=== PATIENT | female | born 1935 | race Caucasian/White ===

== ENCOUNTER 2018-02-05 20:29 | Inpatient (IN) | payer OTHER ==
[~2018-02-05] VITALS: Ht 165.1 cm; Wt 69.9 kg
[~2018-02-05 20:29] MED LIST: ACET-1087 PO; ALBU0.0912 IH; BECL0.089 IH; GLU500 PO; OMEP40EC1 PO; [UNRECOGNIZED DRUG - CODE] OP
[2018-02-05 20:47] VITALS: BP 111/55
[2018-02-05] MEDS ORDERED: MORPHINE SULFATE 4 MG/ML SYR IVP ONE ×2 (21:10→22:25)
[2018-02-05] MEDS ORDERED: NACL 0.9% 1,000 ML IV ONE ×2 (21:10→21:50)
[2018-02-05] MEDS ORDERED: ONDANSETRON 4 MG/2 ML VIAL IVP ONE (21:10)
[2018-02-05 21:38] LABS: HEMATOCRIT 31.5 % (36-48); HEMOGLOBIN 10.9 g/dL (12.0-16.0); MEAN CORPUSCULAR HEMOGLOBIN 36 pg (27-31); MEAN CORPUSCULAR HGB CONC 35 g/dL (33-37); MEAN CORPUSCULAR VOLUME 102.7 fL (80-94); PLATELET COUNT (AUTO) 201 K/uL (140-450); RED BLOOD CELL COUNT(AUTO) 3.06 MIL/uL (4.20-5.40); RED CELL DISTRIBUTION WIDTH 15.1 % (11.6-13.7); WHITE BLOOD COUNT (AUTO) 20.2 K/uL (4.8-10.8)
[2018-02-05] MEDS ORDERED: LEVOFLOXACIN 750 MG/D5W PREMIX 150 ML IV ONE (21:45)
[2018-02-05 21:55] LABS: LYMPHOCYTES % (MANUAL) 3 % (20-46); MONOCYTES % (MANUAL) 7 % (5-12)
[2018-02-05 22:01] LABS: ANION GAP 16.5 (8-16); CARBON DIOXIDE 23.2 mmol/L (21-32); CHLORIDE 96 mmol/L (98-107); CREATININE 1.3 mg/dL (0.6-1.3); GLUCOSE 288 mg/dL (74-106); POTASSIUM 4.7 mmol/L (3.5-5.1); SODIUM SERUM 131 mmol/L (136-145); UREA NITROGEN, BLOOD 33 mg/dL (7-18)
[2018-02-05 22:07] LABS: ALBUMIN 2.5 g/dL (3.4-5.0); ASPARTATE AMINOTRANSFERASE 169 U/L (15-37); LIPASE 5678 U/L (73-393)
[2018-02-05] MEDS ORDERED: NACL 0.9% 500 ML IV ONE (22:25)
[2018-02-05] MEDS ORDERED: PROCHLORPERAZINE 10 MG/2 ML VIAL IVP ONE (22:25)
[2018-02-05] MEDS ORDERED: ACETAMINOPHEN 325 MG TAB PO PRN (22:30)
[2018-02-05] MEDS ORDERED: ONDANSETRON 4 MG/2 ML VIAL IVP PRN (22:30)
[2018-02-05] MEDS ORDERED: HYDROcodone/APAP 7.5/325 MG 1 TAB PO PRN (22:30)
[2018-02-05 22:50] VITALS: BP 112/49
[2018-02-05] MEDS: metroNIDAZOLE 500 MG/NS PREMIX 100 ML IV SCH (23:08)
[2018-02-05 23:13] LABS: CHOL/HDL RATIO 13.4 (1-4.5); FREE T4 (FREE THYROXINE) 1.35 ng/dL (0.76-1.46); MAGNESIUM 1.9 mg/dL (1.8-2.4); PHOSPHORUS 2.2 mg/dL (2.5-4.9); THYROID STIMULATING HORMONE 6.87 uIU/mL (0.34-3.74)
[2018-02-05] MEDS ORDERED: INSULIN LISPRO SLIDING SCALE 100 UNITS/ML VIAL SUBQ PRN (23:40)
[2018-02-05] MEDS ORDERED: DEXTROSE 50% 50 ML SYR IVP PRN (23:40)
[2018-02-05] MEDS ORDERED: ALBUTEROL SULFATE/IPRATROPIU 3 ML SOL IH PRN (23:40)
[2018-02-05 23:42] LABS: PROTHROMBIN TIME 13.3 secs (10.8-13.4)
[2018-02-06] VITALS: BP 116/52
[2018-02-06] MEDS: NACL 0.9% 1,000 ML IV SCH ×4 (00:19→21:08)
[2018-02-06] MEDS: ALBUTEROL SULFATE/IPRATROPIU 3 ML SOL IH SCH ×4 (01:30→20:32)
[2018-02-06] MEDS ORDERED: MORPHINE SULFATE 4 MG/ML SYR IVP PRN (02:00)
[2018-02-06 04:00] VITALS: BP 110/54
[2018-02-06] MEDS: metroNIDAZOLE 500 MG/NS PREMIX 100 ML IV SCH ×3 (04:21→21:14)
[2018-02-06] MEDS: BLOOD GLUCOSE MONITORING 1 DEV DEV FS SCH ×4 (06:31→21:14)
[2018-02-06 06:46] LABS: ANION GAP 12.2 (8-16); CHLORIDE 102 mmol/L (98-107); GLUCOSE 242 mg/dL (74-106); POTASSIUM 4.2 mmol/L (3.5-5.1); SODIUM SERUM 133 mmol/L (136-145); UREA NITROGEN, BLOOD 24 mg/dL (7-18)
[2018-02-06 06:51] LABS: HEMATOCRIT 28.3 % (36-48); HEMOGLOBIN 9.6 g/dL (12.0-16.0); MEAN CORPUSCULAR HEMOGLOBIN 35 pg (27-31); MEAN CORPUSCULAR HGB CONC 34 g/dL (33-37); MEAN CORPUSCULAR VOLUME 103.8 fL (80-94); PLATELET COUNT (AUTO) 194 K/uL (140-450); RED BLOOD CELL COUNT(AUTO) 2.73 MIL/uL (4.20-5.40); RED CELL DISTRIBUTION WIDTH 14.7 % (11.6-13.7); WHITE BLOOD COUNT (AUTO) 20.6 K/uL (4.8-10.8)
[2018-02-06 06:54] LABS: MAGNESIUM 1.7 mg/dL (1.8-2.4); PHOSPHORUS 2.9 mg/dL (2.5-4.9)
[2018-02-06 07:51] LABS: LYMPHOCYTES % (MANUAL) 4 % (20-46); MONOCYTES % (MANUAL) 8 % (5-12)
[2018-02-06 08:00] VITALS: BP 104/36
[2018-02-06] MEDS ORDERED: guaiFENesin/CODEINE 100/10MG 5 ML UDC PO PRN (08:15)
[2018-02-06] MEDS: DOCUSATE SODIUM 100 MG GELCAP PO SCH ×2 (08:31→21:14)
[2018-02-06] MEDS: PANTOPRAZOLE 40 MG TABEC PO SCH (08:31)
[2018-02-06] MEDS: LACTOBACILLUS RHAMNOSUS GG 1 EACH CAP PO SCH (08:31)
[2018-02-06] MEDS: metFORMIN 500 MG TAB PO SCH ×2 (08:32→17:55)
[2018-02-06] MEDS ORDERED: MAGNESIUM OXIDE 400 MG TAB PO SCH (11:56)
[2018-02-06 12:00] VITALS: BP 103/43
[2018-02-06 16:00] VITALS: BP 98/39
[2018-02-06] MEDS ORDERED: KETOROLAC 30 MG/ML VIAL IVP PRN (19:10)
[2018-02-06] MEDS ORDERED: KETOROLAC 30 MG/ML VIAL IVP SCH (19:10)
[2018-02-06 19:11] LABS: APPEARANCE,URINE HAZY (CLEAR); BILIRUBIN,URINE 3+ (NEGATIVE); BLOOD, URINE 3+ (NEGATIVE); NITRITE, URINE NEGATIVE (NEGATIVE); PH,URINE 5.5 (5.0-9.0); UGLUCOSE NEGATIVE (NEGATIVE)
[2018-02-06 19:13] LABS: COLOR,URINE AMBER (YELLOW); LEUKOCYTE ESTERASE ,URINE NEGATIVE (NEGATIVE)
[2018-02-06 19:20] LABS: RBC,URINE 20-50 /HPF (0-5)
[2018-02-06 20:00] VITALS: BP 105/34
[2018-02-06] MEDS ORDERED: LEVOFLOXACIN 750 MG/D5W PREMIX 150 ML IV SCH (22:00)
[2018-02-07] VITALS: BP 97/39
[2018-02-07] MEDS: ALBUTEROL SULFATE/IPRATROPIU 3 ML SOL IH SCH ×4 (02:03→18:00)
[2018-02-07 04:00] VITALS: BP 79/37
[2018-02-07] MEDS ORDERED: NACL 0.9% 1,000 ML IV SCH (04:30)
[2018-02-07] MEDS: metroNIDAZOLE 500 MG/NS PREMIX 100 ML IV SCH ×2 (05:07→17:05)
[2018-02-07] MEDS: NACL 0.9% 1,000 ML IV SCH ×2 (05:43→16:00)
[2018-02-07] MEDS: BLOOD GLUCOSE MONITORING 1 DEV DEV FS SCH ×3 (06:34→16:30)
[2018-02-07 07:03] LABS: BASOPHILS % (AUTO) 0.2 % (0.0-2.0); HEMATOCRIT 24.5 % (36-48); HEMOGLOBIN 8.3 g/dL (12.0-16.0); LYMPHOCYTES # (AUTO) 0.6 K/uL (2.5-16.5); LYMPHOCYTES % (AUTO) 3.7 % (20.5-51.1); MEAN CORPUSCULAR HEMOGLOBIN 36 pg (27-31); MEAN CORPUSCULAR HGB CONC 34 g/dL (33-37); MEAN CORPUSCULAR VOLUME 105.5 fL (80-94); MONOCYTES # (AUTO) 1.2 K/uL (0.8-1.0); MONOCYTES % (AUTO) 6.6 % (1.7-9.3); NEUTROPHILS # (AUTO) 15.7 K/uL (1.8-7.7); NEUTROPHILS % (AUTO) 89.5 % (42.2-75.2); PLATELET COUNT (AUTO) 168 K/uL (140-450); RED BLOOD CELL COUNT(AUTO) 2.32 MIL/uL (4.20-5.40); RED CELL DISTRIBUTION WIDTH 15.5 % (11.6-13.7); WHITE BLOOD COUNT (AUTO) 17.5 K/uL (4.8-10.8)
[2018-02-07 07:28] LABS: MAGNESIUM 1.7 mg/dL (1.8-2.4); PHOSPHORUS 2.8 mg/dL (2.5-4.9)
[2018-02-07 07:35] LABS: ALBUMIN 1.5 g/dL (3.4-5.0); BILIRUBIN,DIRECT 7.6 mg/dL (0.0-0.3); TOTAL BILIRUBIN 8.5 mg/dL (0.0-1.0)
[2018-02-07 07:41] LABS: ANION GAP 12.8 (8-16); CHLORIDE 107 mmol/L (98-107); CREATININE 1.3 mg/dL (0.6-1.3); GLUCOSE 111 mg/dL (74-106); POTASSIUM 3.8 mmol/L (3.5-5.1); SODIUM SERUM 136 mmol/L (136-145); UREA NITROGEN, BLOOD 27 mg/dL (7-18)
[2018-02-07 08:00] VITALS: BP 90/37
[2018-02-07] MEDS: metFORMIN 500 MG TAB PO SCH ×2 (08:00→17:00)
[2018-02-07] MEDS ORDERED: KETOROLAC 30 MG/ML VIAL IVP PRN (09:00)
[2018-02-07] MEDS: DOCUSATE SODIUM 100 MG GELCAP PO SCH (09:00)
[2018-02-07] MEDS: LACTOBACILLUS RHAMNOSUS GG 1 EACH CAP PO SCH (09:11)
[2018-02-07] MEDS: PANTOPRAZOLE 40 MG TABEC PO SCH (09:11)
[2018-02-07 12:00] VITALS: BP 108/42
[2018-02-07 12:31] LABS: FOLIC ACID 7.7 ng/mL (>3.0)
[2018-02-07] MEDS ORDERED: MIDAZOLAM 2 MG/2 ML VIAL ONE (13:18)
[2018-02-07] MEDS ORDERED: fentaNYL 0.05 MG/ML VIAL ONE (13:18)
[2018-02-07 16:00] VITALS: BP 121/52
[2018-02-07 19:30] VITALS: BP 129/44
== END 2018-02-07 19:55 | disposition short-term general hospital (02) | DRG 871 ==
LOC: MED 20:29 → MTU 22:27
PROVIDERS: ADMIT Family Medicine Sports Medicine; ATTEND Family Medicine Sports Medicine
DX: A41.9 Sepsis, unspecified organism (principal); K85.90 Acute pancreatitis without necrosis or infection, unspecified; N17.0 Acute kidney failure with tubular necrosis; J96.01 Acute respiratory failure with hypoxia; E43 Unspecified severe protein-calorie malnutrition; J18.9 Pneumonia, unspecified organism; D68.59 Other primary thrombophilia; E11.65 Type 2 diabetes mellitus with hyperglycemia; E11.319 Type 2 diabetes mellitus with unspecified diabetic retinopathy without macular edema; E11.51 Type 2 diabetes mellitus with diabetic peripheral angiopathy without gangrene; E87.1 Hypo-osmolality and hyponatremia; E11.69 Type 2 diabetes mellitus with other specified complication; D53.9 Nutritional anemia, unspecified; E86.0 Dehydration; K80.50 Calculus of bile duct without cholangitis or cholecystitis without obstruction; R65.20 Severe sepsis without septic shock; K21.9 Gastro-esophageal reflux disease without esophagitis; J44.9 Chronic obstructive pulmonary disease, unspecified; E78.5 Hyperlipidemia, unspecified; H54.8 Legal blindness, as defined in USA; E78.2 Mixed hyperlipidemia; E02 Subclinical iodine-deficiency hypothyroidism; E83.42 Hypomagnesemia; I10 Essential (primary) hypertension; Z96.652 Presence of left artificial knee joint; J40 Bronchitis, not specified as acute or chronic; H91.90 Unspecified hearing loss, unspecified ear; Z79.84 Long term (current) use of oral hypoglycemic drugs; Z88.0 Allergy status to penicillin; Z79.899 Other long term (current) drug therapy; Z87.440 Personal history of urinary (tract) infections; Z68.25 Body mass index [BMI] 25.0-25.9, adult
CPT/HCPCS: 36415; 71045; 76705; 80048; 80053; 80076; 81001; 82150; 82607; 82728; 82746; 82948; 83036; 83540; 83605; 83690; 83735; 84100; 84439; 84443; 84484; 85025; 85045; 85610; 85730; 87040; 87070; 87081; 87086; 87205; 87804; 93005; 93925; 93970; 94640; 96361; 96374; 96375; 96376; 99291; J0780; J1815; J1885; J1956; J2250; J2270; J2405; J3010; J3490; J7030; J7620; Q0092

== ENCOUNTER 2018-12-30 19:34 | Inpatient (IN) | payer OTHER, MEDICAID ==
[~2018-12-30] VITALS: Ht 154.9 cm; Wt 72.6 kg
--- NOTE | 2018-12-30 20:20 | NUR ---
[facility], FAMILY WITH HER
[2018-12-30 20:22] VITALS: BP 129/56
--- NOTE | 2018-12-30 20:22 | NUR ---
PT IS UNABLE TO URINATE , GAVE U/A SPEC. CUP.
[2018-12-30 20:28] LABS: BASOPHILS % (AUTO) 0.4 % (0.0-2.0); EOSINOPHILS # (AUTO) 0.5 K/uL (0-0.4); HEMATOCRIT 36.6 % (36-48); HEMOGLOBIN 12.1 g/dL (12.0-16.0); LYMPHOCYTES # (AUTO) 1.1 K/uL (2.5-16.5); MEAN CORPUSCULAR HEMOGLOBIN 34 pg (27-31); MEAN CORPUSCULAR HGB CONC 33 g/dL (33-37); MEAN CORPUSCULAR VOLUME 102.6 fL (80-94); MONOCYTES # (AUTO) 0.8 K/uL (0.8-1.0); MONOCYTES % (AUTO) 12.4 % (1.7-9.3); NEUTROPHILS # (AUTO) 3.8 K/uL (1.8-7.7); NEUTROPHILS % (AUTO) 61.2 % (42.2-75.2); PLATELET COUNT (AUTO) 178 K/uL (140-450); RED BLOOD CELL COUNT(AUTO) 3.57 MIL/uL (4.20-5.40); RED CELL DISTRIBUTION WIDTH 13.6 % (11.6-13.7); WHITE BLOOD COUNT (AUTO) 6.2 K/uL (4.8-10.8)
[2018-12-30 20:42] LABS: CARBON DIOXIDE 26.2 mmol/L (21-32); CHLORIDE 105 mmol/L (98-107); CREATININE 1.5 mg/dL (0.6-1.3); GLUCOSE 224 mg/dL (74-106); POTASSIUM 4.2 mmol/L (3.5-5.1); SODIUM SERUM 141 mmol/L (136-145); UREA NITROGEN, BLOOD 37 mg/dL (7-18)
[2018-12-30 20:47] LABS: PROTHROMBIN TIME 10.8 secs (10.8-13.4)
[2018-12-30 20:56] LABS: ALBUMIN 3.5 g/dL (3.4-5.0); ASPARTATE AMINOTRANSFERASE 27 U/L (15-37); TOTAL BILIRUBIN 0.3 mg/dL (0.0-1.0)
--- NOTE | 2018-12-30 21:05 | NUR ---
PT TO ED WITH C/O COUGH AND REPORTED FEVER X 1 MONTH. PT REPORTS BEING SEEN BY PRIMARY MD AND GIVEN ABX WITH NO RELIEF OF SMYMPTOMS. PT DENIES CP/SOB. LUNG SOUNDS CLEAR TO ASCULTATION. NO S/S OF DISTRESS NOTED. PT PLACED INTO BED, PENDING MD JOHNSON.
[2018-12-30 22:18] LABS: APPEARANCE,URINE CLOUDY (CLEAR); BILIRUBIN,URINE NEGATIVE (NEGATIVE); BLOOD, URINE TRACE-L (NEGATIVE); COLOR,URINE YELLOW (YELLOW); LEUKOCYTE ESTERASE ,URINE 2+ (NEGATIVE); NITRITE, URINE NEGATIVE (NEGATIVE); PH,URINE 5.5 (5.0-9.0); UGLUCOSE NEGATIVE (NEGATIVE)
[2018-12-30 22:56] LABS: WBC,URINE TOO MANY TO COUNT /HPF (0-5)
[2018-12-30 22:57] LABS: RBC,URINE 0-5 /HPF (0-5)
[2018-12-30] MEDS ORDERED: LEVOFLOXACIN 500 MG/D5W PREMIX 100 ML IV ONE (23:10)
--- NOTE | 2018-12-31 00:30 | NUR ---
PT RESTING WITH VISITORS AT BEDSIDE. NO NEW COMPLAINTS. WILL CONTINUE TO MONITOR.
[2018-12-31] MEDS ORDERED: LORazepam 2 MG/ML VIAL IVP PRN (01:35)
[2018-12-31] MEDS ORDERED: ACETAMINOPHEN 500 MG PO SCH (01:35)
[2018-12-31] MEDS ORDERED: DEXTROSE 50% 50 ML SYR IVP PRN (01:35)
[2018-12-31] MEDS ORDERED: HYDROcodone/APAP 5/325 MG 1 TAB TAB PO PRN (01:35)
[2018-12-31] MEDS ORDERED: NON-FORMULARY ITEM (Omeprazole* (Prilosec*) 40 MG) PO SCH (01:35)
[2018-12-31] MEDS ORDERED: ONDANSETRON 4 MG/2 ML VIAL IVP PRN (01:35)
[2018-12-31] MEDS ORDERED: ACETAMINOPHEN 325 MG TAB PO PRN (01:35)
--- NOTE | 2018-12-31 01:47 | NUR ---
PT SLEEPING WITH VSS. WILL CONTINUE TO MONITOR.
--- NOTE | 2018-12-31 02:44 | NUR ---
Patient will be admitted to care of DR ESPINOZA. Admited to M/S. Will go to room 123-A. Belongings list completed. Report to LON HEWITT.
--- NOTE | 2018-12-31 02:50 | NUR ---
RECEIVED REPORT FROM PANTRY WORKER FOR CONTINUITY OF CARE. PT IS A/OX4, ON ROOM AIR AND SPEAKS TURKMEN ONLY. PT ABLE TO MAKE NEEDS KNOWN, AND ABLE TO FOLLOW COMMANDS. PT AMBULATES WITH ASSISTANCE. PT SKIN IS INTACT. PT HAS A 22G IV TO LEFT HAND, ASYMPTOMATIC AND INTACT. VITAL SIGNS WITHIN NORMAL LIMITS. PT STABLE, DENIES PAIN, NO SIGNS OF DISTRESS NOTED AT THIS TIME. PT POSITIONED FOR COMFORT. BED IN LOWEST POSITION, BED ALARM ON. WILL CONTINUE TO MONITOR.
[2018-12-31 03:00] VITALS: BP 132/45
[2018-12-31] MEDS: NACL 0.9% 1,000 ML IV SCH ×3 (03:30→21:35)
[2018-12-31] MEDS: BLOOD GLUCOSE MONITORING 1 DEV DEV FS SCH ×4 (06:03→21:36)
--- NOTE | 2018-12-31 06:03 | NUR ---
PT BLOOD SUGAR IS 160, PT REFUSES HUMALOG INSULIN COVERAGE.
--- NOTE | 2018-12-31 07:29 | NUR ---
ENDORSED PT TO DAY SHIFT RN RASHEEDA AT BEDSIDE, FOR CONTINUITY OF CARE. PT IN STABLE CONDITION.
--- NOTE | 2018-12-31 07:30 | NUR ---
RECEIVED BEDSIDE REPORT FROM STOCK MANAGER NURSE. PATIENT IS AWAKE, ALERT AND ORIENTEDX4. CONGOLESE SPEAKER. NO SIGNS OF DISTRESS ON RA. SKIN INTACT. FALL RISK PROTOCOL IN PLACE. PATIENT IS LEGALLY BLIND. WALKER AT BEDSIDE. L HAND 22G INFUSING NS AT 100. CLEAN, DRY AND INTACT. BED IN LOW POSITION, CALL LIGHT WITHIN REACH. PATIENT IS CONTINENT. WILL CONTINUE TO MONITOR
[2018-12-31 08:00] VITALS: BP 128/48
--- NOTE | 2018-12-31 08:03 | NUR ---
PATIENT HAS BEEN SCREENED AND CATEGORIZED MODERATE NUTRITION RISK. PATIENT WILL BE SEEN WITHIN 3-5 DAYS OF ADMISSION. 01/02/[address]
[2018-12-31] MEDS ORDERED: ENOXAPARIN 40 MG/0.4 ML SYR SUBQ SCH (09:00)
[2018-12-31] MEDS ORDERED: CROMOLYN SODIUM OP SCH (09:00)
[2018-12-31] MEDS ORDERED: [UNRECOGNIZED DRUG - OTHER] IH SCH (09:00)
[2018-12-31] MEDS: ENOXAPARIN 30 MG/0.3 ML SYR SUBQ SCH (09:20)
--- NOTE | 2018-12-31 09:20 | NUR ---
ADMINISTERED MED. PATIENT TOLERATED WELL. WILL CONTINUE TO MONITOR
--- NOTE | 2018-12-31 11:00 | NUR ---
PATIENT IN NO DISTRESS, WILL CONTINUE TO MONITOR
[2018-12-31] MEDS: INSULIN LISPRO SLIDING SCALE 100 UNITS/ML VIAL SUBQ PRN ×2 (13:09→21:43)
--- NOTE | 2018-12-31 13:09 | NUR ---
ADMINISTERED PRN INSULIN. PATIENT TOLERATED WELL. WILL CONTINUE TO MONITOR
--- NOTE | 2018-12-31 13:35 | NUR ---
PER REQUEST OF BERTIN DIA I CALLED [employer] TO FIND OUT IF PATIENT HAD HOME HEALTH. SPOKE WITH AYSHA AND SHE SAID THE PATIENT HAD [facility] BACK IN May, [employer] [phone]. FOR AYSHA.
--- NOTE | 2018-12-31 14:30 | NUR ---
WAS CALLED THE THE ROOM BY THE SON, NIKKI ARNOLD. HE WANTED TO LET US KNOW THAT HE WAS APPLYING FOR IHSS FOR THIS PATIENT.
--- NOTE | 2018-12-31 15:16 | NUR ---
AMBULATED PATIENT TO BATHROOM AND BACK TO BED. PATIENT RESTING IN BED. SON AT BEDSIDE. PT. HAS DRY COUGH, LUNGS CLEAR. NO SIGNS OF DISTRESS.
[2018-12-31 16:00] VITALS: BP 118/44
--- NOTE | 2018-12-31 17:00 | NUR ---
PATIENT IN NO DISTRESS. WILL CONTINUE TO MONITOR
--- NOTE | 2018-12-31 18:23 | NUR ---
PATIENT REQUESTING PAIN MEDS. SHES COUGHING AND ITS CAUSING UPPER CHEST PAIN. WILL CONTINUE TO MONITOR
--- NOTE | 2018-12-31 19:23 | NUR ---
GAVE BEDSIDE REPORT TO ORACLE SECURITY CONSULTANT NURSE. PATIENT ENDORSED IN STABLE CONDITION
--- NOTE | 2018-12-31 19:25 | NUR ---
RECEIVED PT FROM HELEN RN PT MAORI SPEAKER AAOX4 LEGALLY BLIND IV ON LEFT ARM INFUSING WELL PT ALSO S ASSISTED TO THE RESTROOM INITIAL ASSESSMENTDONE
[2018-12-31] MEDS ORDERED: guaiFENesin DM 200/20 MG-10 ML 10 ML UDC PO PRN (19:45)
[2018-12-31 20:00] VITALS: BP 115/42
[2018-12-31] MEDS ORDERED: LEVOFLOXACIN 250 MG/D5 PREMIX 50 ML IV SCH (21:00)
--- NOTE | 2018-12-31 21:30 | NUR ---
BLOOD SUGAR TEST 177 COVERAGE WITH 2 UNITS SUBQ HUMALOG PROTOCOL HS SNACK IS GIVEN
[2018-12-31] MEDS ORDERED: LEVOFLOXACIN 500 MG/D5W PREMIX 100 ML IV SCH (23:30)
--- NOTE | 2018-12-31 23:59 | NUR ---
PT REPOSITIONED AND GETTING SLEEP NOT DISTRESS NOTED UNABLE TO GIVE SPUTUM YET
--- NOTE | 2019-01-01 03:00 | NUR ---
SPONGE BATH GIVEN AND SENT TO LAB, ANDPT HAS BEEN ASSISTING TO USED THE BSC
[2019-01-01] MEDS: BLOOD GLUCOSE MONITORING 1 DEV DEV FS SCH ×3 (06:15→16:59)
--- NOTE | 2019-01-01 06:21 | NUR ---
SPUTUM WAS COLECTED AND SENT TO LAB
--- NOTE | 2019-01-01 06:22 | NUR ---
BLOOD SUGAR TEST 118 PT REMAIN RESTING NOT DISTRESS NOTED
--- NOTE | 2019-01-01 07:20 | NUR ---
RECEIVED BEDSIDE REPORT FROM BUNDLE SORTER NURSE. PATIENT IS AWAKE, ALERT AND ORIENTEDX4. NO SIGNS OF DISTRESS ON RA. MACEDONIAN SPEAKER. SKIN IS INTACT. IV ON L HAND 22G INFUSING NS AT 100. CLEAN, DRY AND INTACT. PATIENT AMBULATES BUT IS BLIND. WALKER AT BEDSIDE. AMBULATE W ASSIST. FALL RISK PROTOCOL IN PLACE. PATIENT IS CONTINENT. BEDSIDE COMMODE AT BEDSIDE. BED IN LOW POSITION, CALL LIGHT WITHIN REACH. WILL CONTINUE TO MONITOR THE PATIENT
[2019-01-01 07:25] LABS: BASOPHILS % (AUTO) 0.6 % (0.0-2.0); EOSINOPHILS # (AUTO) 0.4 K/uL (0-0.4); HEMATOCRIT 32.6 % (36-48); HEMOGLOBIN 10.9 g/dL (12.0-16.0); LYMPHOCYTES # (AUTO) 1.9 K/uL (2.5-16.5); LYMPHOCYTES % (AUTO) 37.4 % (20.5-51.1); MEAN CORPUSCULAR HEMOGLOBIN 34 pg (27-31); MEAN CORPUSCULAR HGB CONC 34 g/dL (33-37); MEAN CORPUSCULAR VOLUME 102.6 fL (80-94); MONOCYTES % (AUTO) 19.8 % (1.7-9.3); NEUTROPHILS # (AUTO) 1.7 K/uL (1.8-7.7); NEUTROPHILS % (AUTO) 34.2 % (42.2-75.2); PLATELET COUNT (AUTO) 163 K/uL (140-450); RED BLOOD CELL COUNT(AUTO) 3.18 MIL/uL (4.20-5.40); RED CELL DISTRIBUTION WIDTH 13.5 % (11.6-13.7); WHITE BLOOD COUNT (AUTO) 5.1 K/uL (4.8-10.8)
[2019-01-01 07:33] LABS: CHLORIDE 107 mmol/L (98-107); CREATININE 0.8 mg/dL (0.6-1.3); GLUCOSE 124 mg/dL (74-106); POTASSIUM 3.9 mmol/L (3.5-5.1); SODIUM SERUM 139 mmol/L (136-145); UREA NITROGEN, BLOOD 20 mg/dL (7-18)
[2019-01-01] MEDS: NACL 0.9% 1,000 ML IV SCH (07:46)
[2019-01-01 07:50] LABS: ANION GAP 10.1 (8-16); CARBON DIOXIDE 25.8 mmol/L (21-32)
[2019-01-01 08:00] VITALS: BP 100/50
[2019-01-01] MEDS ORDERED: ASPIRIN 81 MG TAB.CHEW PO SCH (09:00)
--- NOTE | 2019-01-01 09:30 | NUR ---
ADMINISTERED MEDICATION TO PATIENT. TOLERATED WELL. RESTING IN BEST NO SIGNS OF DISTRESS ON RA. CALL LIGHT WITHIN REACH, BED IN LOW POSITION.
[2019-01-01] MEDS: ENOXAPARIN 30 MG/0.3 ML SYR SUBQ SCH (09:34)
--- NOTE | 2019-01-01 11:00 | NUR ---
PATIENT IN NO SIGNS OF DISTRESS. WILL CONTINUE TO MONITOR THE PATIENT
--- NOTE | 2019-01-01 13:30 | NUR ---
PATIENT IS SLEEPING. NO SIGNS OF DISTRESS. WILL CONTINUE TO MONITOR THE PATIENT
[2019-01-01] MEDS ORDERED: LEVO750T2 PO (14:16)
[2019-01-01] MEDS ORDERED: GUAI-646 PO (14:17)
--- NOTE | 2019-01-01 15:28 | NUR ---
PATIENT LAYING IN BED. NO SIGNS OF DISTRESS. WILL CONTINUE TO MONITOR THE PATIENT.
[2019-01-01] MEDS ORDERED: ALBU0.63 IH (15:39)
[2019-01-01] MEDS ORDERED: ALBUTEROL 0.083% 2.5 MG/3 ML NEBU INH PRN (15:45)
[2019-01-01 16:00] VITALS: BP 121/38
--- NOTE | 2019-01-01 16:07 | NUR ---
PATIENT CURRENTLY W RT GETTING BREATHING TX
--- NOTE | 2019-01-01 17:27 | NUR ---
EDUCATED PATIENT AND DAUGHTER ON DISEASE PROCESS, ABN S/SX, WHEN TO GO TO THE ER, EDUCATED ON F/U W PCP IN 1-2 WEEKS, EDUCATED ON MEDS AND GAVE PRESCRIPTION. PATIENT AND DAUGHTER VERBALIZED UNDERSTANDING. DAUGHTER SIGNED PAPERWORK, PATIENT IS BLIND. ID BANDS REMOVED. REMOVED IV. TIP INTACT.
--- NOTE | 2019-01-01 17:35 | NUR ---
PNA AND FLU VACCINE UP TO DATE PER DAUGHTER. PATIENT LEFT IN STABLE CONDITION IN WALKER
[2019-01-02] MEDS ORDERED: PANTOPRAZOLE 40 MG TABEC PO SCH (06:30)
== END 2019-01-01 17:35 | disposition home or self-care (01) | DRG 683 ==
LOC: MED 19:34 → MTU 12-31 01:38
PROVIDERS: ADMIT Hospitalist; ATTEND Hospitalist
DX: N17.9 Acute kidney failure, unspecified (principal); N39.0 Urinary tract infection, site not specified; J45.901 Unspecified asthma with (acute) exacerbation; E11.65 Type 2 diabetes mellitus with hyperglycemia; Z88.0 Allergy status to penicillin; Z79.84 Long term (current) use of oral hypoglycemic drugs; Z79.899 Other long term (current) drug therapy
CPT/HCPCS: 36415; 71045; 80048; 80053; 81001; 82948; 83605; 83880; 84484; 85025; 85610; 85730; 87040; 87070; 87081; 87086; 87186; 87205; 87804; 89220; 93005; 94640; 96365; 99285; J1650; J1815; J1956; J7030; J7613

== ENCOUNTER 2019-06-21 00:58 | Emergency (ER) | payer OTHER, MEDICAID ==
[~2019-06-21] VITALS: Ht 149.9 cm; Wt 77.1 kg
[~2019-06-21 00:58] MED LIST changes: -ACET-1087 PO; -BECL0.089 IH; +GUAI-646 PO; +LEVO750T2 PO; -OMEP40EC1 PO; -[UNRECOGNIZED DRUG - CODE] OP
[2019-06-21 01:05] VITALS: BP 120/63
--- NOTE | 2019-06-21 01:49 | NUR ---
83/F BIB FAMILY, C/O DIARRHEA (X10 EPISODSES TONIGHT) AND MIDABD PAIN RADIATING DIFFUSELY, X5 DAYS. DENIES FEVER, N/V. PT AWAKE AND ALERT, BL BLINDNESS NOTED, SKIN LOOSE NORMAL COLOR WARM AND DRY, RR EVEN AND UNLABORED. LUNG SOUNDS CLEAR BL. HR EVEN AND REGULAR, NSR ON MONITOR. BS ACTIVE X4, ABD SOFT FLAT TENDER DIFFUSELY. HX DM, BLINDNESS, ASTHMA RX METFORMIN, ALBUTEROL INH
[2019-06-21] MEDS ORDERED: LOPERAMIDE 2 MG CAP PO ONE (01:55)
[2019-06-21] MEDS ORDERED: NACL 0.9% 1,000 ML IV ONE (01:55)
[2019-06-21 02:19] LABS: BASOPHILS % (AUTO) 0.3 % (0.0-2.0); EOSINOPHILS # (AUTO) 0.3 K/uL (0-0.4); EOSINOPHILS % (AUTO) 4.7 % (0.0-4.0); HEMATOCRIT 34.8 % (36-48); HEMOGLOBIN 11.7 g/dL (12.0-16.0); LYMPHOCYTES % (AUTO) 36.1 % (20.5-51.1); MEAN CORPUSCULAR HEMOGLOBIN 34 pg (27-31); MEAN CORPUSCULAR HGB CONC 34 g/dL (33-37); MEAN CORPUSCULAR VOLUME 101.5 fL (80-94); MONOCYTES # (AUTO) 0.6 K/uL (0.8-1.0); MONOCYTES % (AUTO) 10.5 % (1.7-9.3); NEUTROPHILS # (AUTO) 2.7 K/uL (1.8-7.7); NEUTROPHILS % (AUTO) 48.4 % (42.2-75.2); PLATELET COUNT (AUTO) 156 K/uL (140-450); RED BLOOD CELL COUNT(AUTO) 3.42 MIL/uL (4.20-5.40); RED CELL DISTRIBUTION WIDTH 13.8 % (11.6-13.7); WHITE BLOOD COUNT (AUTO) 5.6 K/uL (4.8-10.8)
[2019-06-21 02:37] LABS: ALBUMIN 3.3 g/dL (3.4-5.0); ANION GAP 9.4 (8-16); ASPARTATE AMINOTRANSFERASE 20 U/L (15-37); CHLORIDE 105 mmol/L (98-107); CREATININE 1.1 mg/dL (0.6-1.3); GLUCOSE 209 mg/dL (74-106); POTASSIUM 4.4 mmol/L (3.5-5.1); SODIUM SERUM 138 mmol/L (136-145); TOTAL BILIRUBIN 0.4 mg/dL (0.0-1.0); UREA NITROGEN, BLOOD 25 mg/dL (7-18)
--- NOTE | 2019-06-21 02:49 | NUR ---
BACK FROM CT SCAN.
--- NOTE | 2019-06-21 02:50 | NUR ---
CT SCANNER BROKEN. CT NOT DONE.
--- NOTE | 2019-06-21 03:51 | NUR ---
DISCHARGED STABLE. PRESCRIPTION,COPY OF LABS,VERBAL AND WRITTEN AFTERCARE INSTRUCTIONS GIVEN TO PATIENT AND FAMILY. VERBALIZED UNDERSTANDING.
[2019-06-21 04:30] VITALS: BP 126/44
== END 2019-06-21 03:51 | disposition home or self-care (01) ==
LOC: MED 00:58
DX: R19.7 Diarrhea, unspecified (principal); J44.9 Chronic obstructive pulmonary disease, unspecified; E11.9 Type 2 diabetes mellitus without complications; Z88.0 Allergy status to penicillin; Z79.899 Other long term (current) drug therapy; Z79.2 Long term (current) use of antibiotics; Z79.51 Long term (current) use of inhaled steroids
CPT/HCPCS: 36415; 80053; 85025; 96360; 99283; J7030

== ENCOUNTER 2019-07-19 15:40 | Emergency (ER) | payer OTHER, MEDICAID ==
[~2019-07-19] VITALS: Ht 149.9 cm; Wt 75.7 kg
[2019-07-19 16:15] VITALS: BP 117/55
[2019-07-19] MEDS ORDERED: HYDROcodone/APAP 5/325 MG 1 TAB TAB PO ONE (17:05)
[2019-07-19] MEDS ORDERED: ONDANSETRON 4 MG ODT PO ONE (17:05)
[2019-07-19 17:53] LABS: BASOPHILS % (AUTO) 0.2 % (0.0-2.0); HEMATOCRIT 34.8 % (36-48); HEMOGLOBIN 11.4 g/dL (12.0-16.0); LYMPHOCYTES # (AUTO) 0.7 K/uL (2.5-16.5); LYMPHOCYTES % (AUTO) 4.7 % (20.5-51.1); MEAN CORPUSCULAR HEMOGLOBIN 34 pg (27-31); MEAN CORPUSCULAR HGB CONC 33 g/dL (33-37); MEAN CORPUSCULAR VOLUME 103.5 fL (80-94); MONOCYTES # (AUTO) 1.2 K/uL (0.8-1.0); NEUTROPHILS % (AUTO) 87.1 % (42.2-75.2); PLATELET COUNT (AUTO) 147 K/uL (140-450); RED BLOOD CELL COUNT(AUTO) 3.36 MIL/uL (4.20-5.40); RED CELL DISTRIBUTION WIDTH 13.5 % (11.6-13.7)
[2019-07-19 17:55] LABS: APPEARANCE,URINE SL CLOUDY (CLEAR); BILIRUBIN,URINE 1+ (NEGATIVE); BLOOD, URINE 3+ (NEGATIVE); COLOR,URINE YELLOW (YELLOW); LEUKOCYTE ESTERASE ,URINE 2+ (NEGATIVE); NITRITE, URINE NEGATIVE (NEGATIVE); UGLUCOSE NEGATIVE (NEGATIVE)
[2019-07-19 18:10] LABS: ANION GAP 16.4 (8-16); CARBON DIOXIDE 23.7 mmol/L (21-32); CHLORIDE 95 mmol/L (98-107); CREATININE 1.5 mg/dL (0.6-1.3); GLUCOSE 207 mg/dL (74-106); POTASSIUM 4.1 mmol/L (3.5-5.1); SODIUM SERUM 131 mmol/L (136-145); UREA NITROGEN, BLOOD 31 mg/dL (7-18)
[2019-07-19 18:16] LABS: ASPARTATE AMINOTRANSFERASE 34 U/L (15-37); LIPASE 57 U/L (73-393); TOTAL BILIRUBIN 0.6 mg/dL (0.0-1.0)
[2019-07-19] MEDS ORDERED: SULFAMETH/TRIMETH DS 800/160MG 1 TAB PO ONE (18:35)
[2019-07-19 19:04] VITALS: BP 126/71
== END 2019-07-19 19:06 | disposition home or self-care (01) ==
LOC: MED 15:40
DX: N39.0 Urinary tract infection, site not specified (principal); R11.0 Nausea; J44.9 Chronic obstructive pulmonary disease, unspecified; E11.9 Type 2 diabetes mellitus without complications; K21.9 Gastro-esophageal reflux disease without esophagitis; H54.8 Legal blindness, as defined in USA; Z90.49 Acquired absence of other specified parts of digestive tract; Z98.890 Other specified postprocedural states; Z79.84 Long term (current) use of oral hypoglycemic drugs; Z79.899 Other long term (current) drug therapy; Z88.0 Allergy status to penicillin
CPT/HCPCS: 36415; 70450; 80053; 81001; 83690; 85025; 87086; 87186; 99284; Q0162

== ENCOUNTER 2020-06-29 09:36 | Emergency (ER) | payer OTHER, MEDICAID ==
[~2020-06-29] VITALS: Ht 154.9 cm; Wt 72.6 kg
[2020-06-29 09:42] VITALS: BP 152/77
--- NOTE | 2020-06-29 09:50 | NUR ---
PT AMBULATED TO ER BED 03
--- NOTE | 2020-06-29 10:00 | NUR ---
CHAPERONED DR. BUCK FOR BEDSIDE RECTAL EXAM. PT TOLERATED PROCEDURE WELL
--- NOTE | 2020-06-29 10:00 | NUR ---
dr newman at bedside evaluating pt.
--- NOTE | 2020-06-29 10:02 | NUR ---
C/O COUGH X 2 MONTHS, BLOODY STOOL, INTERMITENT ABDOMINAL PAIN X 2 WEEKS. BLOOD SUGAR 407 AT THIS TIME.PT AOX4 , AFIBRILE , AMBULATORY WITH STEADY GAIT,UNABLE TO SEE, PINK PALPEBRAL CONJUNCTIVA , ANICTERIC SCLERA , SCE , ROUND SOFT ABDOMEN. MED HX: DM, ASTHMA,COPD,GERD
[2020-06-29 10:39] LABS: BASOPHILS % (AUTO) 0.5 % (0.0-2.0); EOSINOPHILS # (AUTO) 0.3 K/uL (0-0.4); EOSINOPHILS % (AUTO) 6.1 % (0.0-4.0); HEMATOCRIT 37.5 % (36-48); HEMOGLOBIN 12.3 g/dL (12.0-16.0); LYMPHOCYTES # (AUTO) 1.9 K/uL (2.5-16.5); LYMPHOCYTES % (AUTO) 33.7 % (20.5-51.1); MEAN CORPUSCULAR HEMOGLOBIN 34 pg (27-31); MEAN CORPUSCULAR HGB CONC 33 g/dL (33-37); MEAN CORPUSCULAR VOLUME 102.4 fL (80-94); MONOCYTES # (AUTO) 0.6 K/uL (0.8-1.0); MONOCYTES % (AUTO) 11.1 % (1.7-9.3); NEUTROPHILS # (AUTO) 2.7 K/uL (1.8-7.7); NEUTROPHILS % (AUTO) 48.6 % (42.2-75.2); PLATELET COUNT (AUTO) 179 K/uL (140-450); RED BLOOD CELL COUNT(AUTO) 3.66 MIL/uL (4.20-5.40); RED CELL DISTRIBUTION WIDTH 13.6 % (11.6-13.7); WHITE BLOOD COUNT (AUTO) 5.5 K/uL (4.8-10.8)
[2020-06-29 10:50] LABS: APPEARANCE,URINE HAZY (CLEAR); BILIRUBIN,URINE NEGATIVE (NEGATIVE); BLOOD, URINE 1+ (NEGATIVE); COLOR,URINE YELLOW (YELLOW); LEUKOCYTE ESTERASE ,URINE TRACE (NEGATIVE); NITRITE, URINE NEGATIVE (NEGATIVE); UGLUCOSE 3+ (NEGATIVE)
[2020-06-29 10:58] LABS: ALBUMIN 3.1 g/dL (3.4-5.0); ANION GAP 11.3 (8-16); ASPARTATE AMINOTRANSFERASE 17 U/L (15-37); CARBON DIOXIDE 26.3 mmol/L (21-32); CHLORIDE 103 mmol/L (98-107); CREATININE 1.1 mg/dL (0.6-1.3); LIPASE 98 U/L (73-393); POTASSIUM 4.6 mmol/L (3.5-5.1); SODIUM SERUM 136 mmol/L (136-145); TOTAL BILIRUBIN 0.3 mg/dL (0.0-1.0); UREA NITROGEN, BLOOD 23 mg/dL (7-18)
--- NOTE | 2020-06-29 11:00 | NUR ---
SPOKE TO NIKKI PT SON WAITING AT THE PARKING LOT REGARDING PT CONDITION.
[2020-06-29 11:02] LABS: RBC,URINE 0-5 /HPF (0-5); WBC,URINE 20-60 /HPF (0-5)
[2020-06-29 11:04] LABS: GLUCOSE 469 mg/dL (74-106)
--- NOTE | 2020-06-29 11:15 | NUR ---
DR BUCK AT BEDSIDE REEVALUATING PT.
[2020-06-29] MEDS ORDERED: NACL 0.9% 1,000 ML IV ONE (11:20)
[2020-06-29] MEDS ORDERED: INSULIN REGULAR, HUMAN 100 UNIT/ML VIAL SUBQ ONE (11:20)
--- NOTE | 2020-06-29 11:55 | NUR ---
pt comfortable in bed side rails up x1 and lock, with son at bedside.
--- NOTE | 2020-06-29 13:20 | NUR ---
Patient discharged with v/s stable. Written and verbal after care instructions given and explained regarding hyperglycemia and uti. Patient alert, oriented and verbalized understanding of instructions. Ambulatory with steady gait. All questions addressed prior to discharge. ID band removed. Patient advised to follow up with PMD. Rx of metformin and macrobid given. Patient educated on indication of medication including possible reaction and side effects. Opportunity to ask questions provided and answered.
[2020-06-29 13:21] VITALS: BP 152/77
== END 2020-06-29 13:20 | disposition home or self-care (01) ==
LOC: MED 09:36
DX: E11.65 Type 2 diabetes mellitus with hyperglycemia (principal); N39.0 Urinary tract infection, site not specified; R03.0 Elevated blood-pressure reading, without diagnosis of hypertension; J44.9 Chronic obstructive pulmonary disease, unspecified; J45.909 Unspecified asthma, uncomplicated; K21.9 Gastro-esophageal reflux disease without esophagitis; Z88.0 Allergy status to penicillin; Z90.49 Acquired absence of other specified parts of digestive tract; Z79.899 Other long term (current) drug therapy; Z87.81 Personal history of (healed) traumatic fracture
CPT/HCPCS: 36415; 80053; 81001; 83690; 85025; 87086; 96361; 96372; 99283; J1815; J7030; 87186

== ENCOUNTER 2021-04-13 14:36 | Emergency (ER) | payer OTHER, MEDICAID, SELFPAY ==
[~2021-04-13] VITALS: Ht 154.9 cm; Wt 87.1 kg
[~2021-04-13 14:36] MED LIST changes: -ALBU0.0912 IH; +APIX2.5 PO; +DEC4 PO; +FAMO-90 PO; -GUAI-646 PO; +INSU-1331 SC; +LEVO500T98 PO; -LEVO750T2 PO
[2021-04-13 14:39] VITALS: BP 122/57
[2021-04-13] MEDS ORDERED: KETOROLAC 60 MG/2 ML VIAL IM ONE (15:15)
[2021-04-13] MEDS ORDERED: CIPR500T4 PO (16:00)
[2021-04-13] MEDS ORDERED: PRED20TA5 PO (16:00)
[2021-04-13] MEDS ORDERED: IBUP-2213 PO (16:00)
[2021-04-13 16:08] VITALS: BP 122/57
== END 2021-04-13 16:09 | disposition home or self-care (01) ==
LOC: MED 14:36
DX: N12 Tubulo-interstitial nephritis, not specified as acute or chronic (principal); Z20.822 Contact with and (suspected) exposure to COVID-19; J45.909 Unspecified asthma, uncomplicated; I10 Essential (primary) hypertension; E11.9 Type 2 diabetes mellitus without complications; K21.9 Gastro-esophageal reflux disease without esophagitis; Z79.4 Long term (current) use of insulin; Z79.899 Other long term (current) drug therapy; Z88.0 Allergy status to penicillin; Z90.49 Acquired absence of other specified parts of digestive tract
CPT/HCPCS: 71045; 81002; 87426; 96372; 99284; J1885

== ENCOUNTER 2021-08-09 20:37 | Emergency (ER) | payer OTHER, MEDICAID ==
[~2021-08-09] VITALS: Ht 147.3 cm; Wt 76.7 kg
[~2021-08-09 20:37] MED LIST changes: +CIPR500T4 PO; +IBUP-2213 PO; +PRED20TA5 PO
--- NOTE | 2021-08-09 20:56 | NUR ---
PT AMBULATED TO ER BED 3 WITH ASSISTANCE OF WALKER
[2021-08-09 20:59] VITALS: BP 145/66
--- NOTE | 2021-08-09 21:05 | NUR ---
85 Y/O F, PT PRESENTS TO ED WITH ABD PAIN, BLOOD IN STOOL, DIARRHEA, NAUSEA WITH DYSURIA AND URINARY RETENTION FOR 8 DAYS. PT STATED 8 DAYS AGO SHE FELL FROM BED ON L SIDE OF BODY, DENIES LOC, SYNCOPE OR HEAD/NECK INJURY. STATES AFTER SHE FELL SHE STARTED HAVING INTENSE ABD PAIN THAT RADIATES TO SACRAL AREA. PT BASELINE IS A&OX4, AMBULATES WITH WALKER, PT IS BLIND NEEDS ASSISTANCE WITH AMBULATING. PATIENT REPORTS GENERALIZED ABDOMINAL PAIN 10/10, THROBBING/ACHING/CONSTANT PAIN. PATIENT STATES RIGHT HIP PAIN WELL. DENIES CHEST PAIN, DIZZINESS, HEADACHE, BLURRY VISION, SOB. PT PLACED INTO GOWN AND OBSTETRICS TECHNICIAN. MID ABDOMEN TENDER TO PALPATION. PATIENT REPORTS TYLENOL PRIOR TO ARRIVAL WITH MINOR RELIEF. VSS; RESPIRATIONS EVEN/UNLABORED. BED LOCKED IN LOWEST POSITION, SIDE RAILS X 1, CALL LIGHT IN REACH. PMH: DM2, ASTHMA, BLIND MED: DENIES ALLERGY: PENICILLIN
--- NOTE | 2021-08-09 21:21 | NUR ---
Patient states she is unable to provide urine sample at this time.
--- NOTE | 2021-08-09 22:18 | NUR ---
CIPRIANO handed to CPT Renee at ER bedside
--- NOTE | 2021-08-09 22:20 | NUR ---
Blood sample collected, handed to CPT Renee at ER bedside
[2021-08-09 22:24] LABS: APPEARANCE,URINE CLEAR (CLEAR); BILIRUBIN,URINE NEGATIVE (NEGATIVE); BLOOD, URINE NEGATIVE (NEGATIVE); COLOR,URINE YELLOW (YELLOW); LEUKOCYTE ESTERASE ,URINE NEGATIVE (NEGATIVE); NITRITE, URINE POSITIVE (NEGATIVE); UGLUCOSE NEGATIVE (NEGATIVE)
[2021-08-09 22:25] LABS: BASOPHILS % (AUTO) 0.4 % (0.0-2.0); EOSINOPHILS # (AUTO) 0.1 K/uL (0-0.4); EOSINOPHILS % (AUTO) 2.3 % (0.0-4.0); HEMOGLOBIN 12.9 g/dL (12.0-16.0); LYMPHOCYTES # (AUTO) 1.8 K/uL (2.5-16.5); LYMPHOCYTES % (AUTO) 28.3 % (20.5-51.1); MEAN CORPUSCULAR HEMOGLOBIN 34 pg (27-31); MEAN CORPUSCULAR HGB CONC 33 g/dL (33-37); MONOCYTES # (AUTO) 0.5 K/uL (0.8-1.0); NEUTROPHILS # (AUTO) 4.1 K/uL (1.8-7.7); PLATELET COUNT (AUTO) 171 K/uL (140-450); RED BLOOD CELL COUNT(AUTO) 3.79 MIL/uL (4.20-5.40); RED CELL DISTRIBUTION WIDTH 13.7 % (11.6-13.7); WHITE BLOOD COUNT (AUTO) 6.5 K/uL (4.8-10.8)
[2021-08-09 22:39] LABS: ALBUMIN 3.6 g/dL (3.4-5.0); ANION GAP 13.6 (8-16); ASPARTATE AMINOTRANSFERASE 25 U/L (15-37); CARBON DIOXIDE 26.2 mmol/L (21-32); CHLORIDE 104 mmol/L (98-107); CREATININE 1.1 mg/dL (0.6-1.3); GLUCOSE 175 mg/dL (74-106); LIPASE 102 U/L (73-393); POTASSIUM 3.8 mmol/L (3.5-5.1); SODIUM SERUM 140 mmol/L (136-145); TOTAL BILIRUBIN 0.3 mg/dL (0.0-1.0); UREA NITROGEN, BLOOD 22 mg/dL (7-18)
--- NOTE | 2021-08-09 22:39 | NUR ---
SPOKE WITH ARUNA (DAUGHTER) WHO LIVES 15 MINUTES AWAY. DAUGHTER WAITING IN LOBBY STATES SHE WILL GO HOME FOR NOW AND REQUESTED TO CONTACT HER FOR TRANSPORTATION UPON DISCHARGE.
[2021-08-09] MEDS: HYDROcodone/APAP 7.5/325 MG 1 TAB PO ONE (23:18)
--- NOTE | 2021-08-09 23:19 | NUR ---
Report and transfer of care endorsed to LON Hoover
--- NOTE | 2021-08-09 23:30 | NUR ---
Went to check on patient, introduced myself as oncoming primary RN. Pt is primarily frisian speaking. Patient explains she came in to the ED for abdominal pain. Pt was previously medicated with Waddell which she reports is helping with her pain. Consent signed by patient for CT scan. Copy placed in chart. Vital signs updated. Pt placed in position of comfort, blankets repositioned for comfort. All questions answered prior to leaving the room.
--- NOTE | 2021-08-10 01:01 | NUR ---
Pt returned from CT scan and placed onto ekg monitor. Pt reports feeling improvement of pain. All of her needs were addressed at this time. Pt waiting for results. All questions were answered prior to leaving the room. Call light left within reach.
[2021-08-10] MEDS ORDERED: LID5T TP (03:48)
[2021-08-10] MEDS ORDERED: MELO-174 PO (03:49)
[2021-08-10] MEDS: HYDROcodone/APAP 5/325 MG 1 TAB TAB PO ONE (03:58)
--- NOTE | 2021-08-10 04:29 | NUR ---
IV removed, catheter intact and site benign. Applied folded 4x4 gauze and tape to stop bleeding.
[2021-08-10 04:30] VITALS: BP 120/65
--- NOTE | 2021-08-10 04:30 | NUR ---
Patient discharged with v/s stable. Written and verbal after care instructions given about fall, degenerative disk disease and abdominal pain and explained in hungarian by myself. Patient alert, oriented and verbalized understanding of instructions. Ambulatory with use of front wheel walker and steady gait. All questions addressed prior to discharge. ID band removed. Patient advised to follow up with PMD. Rx of Meloxicam and Lidoderm 5% patch given. Patient educated on indication of medication including possible reaction and side effects. Opportunity to ask questions provided and answered.
== END 2021-08-10 04:30 | disposition home or self-care (01) ==
LOC: MED 20:37
DX: S32.010A Wedge compression fracture of first lumbar vertebra, initial encounter for closed fracture (principal); M25.551 Pain in right hip; J45.909 Unspecified asthma, uncomplicated; E11.9 Type 2 diabetes mellitus without complications; K21.9 Gastro-esophageal reflux disease without esophagitis; I10 Essential (primary) hypertension; Z88.0 Allergy status to penicillin; W06.XXXA Fall from bed, initial encounter; Y93.89 Activity, other specified; Y92.89 Other specified places as the place of occurrence of the external cause; Y99.8 Other external cause status
CPT/HCPCS: 36415; 71045; 74177; 80053; 81003; 83690; 84484; 85025; 99285; Q0092; Q9967

== ENCOUNTER 2022-12-10 10:21 | Emergency (ER) | payer OTHER ==
[~2022-12-10] VITALS: Ht 142.2 cm; Wt 79.4 kg
[~2022-12-10 10:21] MED LIST changes: +LEVO-481 PO; -LEVO500T98 PO; +LID5T TP; +MELO-174 PO
[2022-12-10 10:39] VITALS: BP 158/60
--- NOTE | 2022-12-10 10:54 | NUR ---
PT OFFERED A CUP OF WATER, STATED THAT SHE CANNOT PEE AT THIS TIME
--- NOTE | 2022-12-10 10:54 | NUR ---
DR CANO AT BEDSIDE FOR EVAL
--- NOTE | 2022-12-10 11:00 | NUR ---
87 Y/O FEMALE BIB DAUGHTER C/O DIZZINESS, BLEDSOE, NECK PAINX3 DAYS, DENIES ANY CP, ABD PAIN, NV. BS 193 AT THIS TIME. TOOK MOTRIN WITH MODERATE EFFECT. DENIES ANY FALLS, RECENT TRAUMA/INJURY. AMBULATORY WITH WALKER, SKIN IS WARM TO TOUCH. VERBALLY RESPONSIVE, A/OX4 ALLERGY: PCN PMH: DM, ASTHMA, LEGALLY BLIND
--- NOTE | 2022-12-10 11:10 | NUR ---
PT AMBULATED TO BATHROOM WITH STEADY GAIT
[2022-12-10] MEDS ORDERED: NACL 0.9% 1,000 ML IV ONE (11:25)
[2022-12-10] MEDS ORDERED: KETOROLAC 30 MG/ML VIAL IVP ONE (11:25)
[2022-12-10 11:38] LABS: BASOPHILS % (AUTO) 0.4 % (0.0-2.0); EOSINOPHILS # (AUTO) 0.3 K/uL (0-0.4); EOSINOPHILS % (AUTO) 6.3 % (0.0-4.0); HEMATOCRIT 34.4 % (36-48); HEMOGLOBIN 11.5 g/dL (12.0-16.0); LYMPHOCYTES # (AUTO) 1.7 K/uL (2.5-16.5); MEAN CORPUSCULAR HEMOGLOBIN 35 pg (27-31); MEAN CORPUSCULAR HGB CONC 33 g/dL (33-37); MEAN CORPUSCULAR VOLUME 103.5 fL (80-94); MONOCYTES # (AUTO) 0.5 K/uL (0.8-1.0); MONOCYTES % (AUTO) 9.8 % (1.7-9.3); NEUTROPHILS # (AUTO) 2.5 K/uL (1.8-7.7); NEUTROPHILS % (AUTO) 49.5 % (42.2-75.2); PLATELET COUNT (AUTO) 161 K/uL (140-450); RED BLOOD CELL COUNT(AUTO) 3.32 MIL/uL (4.20-5.40); RED CELL DISTRIBUTION WIDTH 14.1 % (11.6-13.7)
[2022-12-10 11:50] LABS: ANION GAP 11.8 (8-16); CARBON DIOXIDE 26.5 mmol/L (21-32); CHLORIDE 105 mmol/L (98-107); GLUCOSE 176 mg/dL (74-106); POTASSIUM 4.3 mmol/L (3.5-5.1); SODIUM SERUM 139 mmol/L (136-145); UREA NITROGEN, BLOOD 19 mg/dL (7-18)
[2022-12-10 12:43] LABS: APPEARANCE,URINE CLEAR (CLEAR); BILIRUBIN,URINE NEGATIVE (NEGATIVE); BLOOD, URINE NEGATIVE (NEGATIVE); COLOR,URINE YELLOW (YELLOW); LEUKOCYTE ESTERASE ,URINE TRACE (NEGATIVE); NITRITE, URINE NEGATIVE (NEGATIVE); PH,URINE 6.5 (5.0-9.0); UGLUCOSE NEGATIVE (NEGATIVE)
[2022-12-10 12:58] LABS: RBC,URINE 0-5 /HPF (0-5); WBC,URINE 0-5 /HPF (0-5)
[2022-12-10] MEDS ORDERED: IBUP-2213 PO (13:30)
[2022-12-10 13:49] VITALS: BP 154/125
--- NOTE | 2022-12-10 13:49 | NUR ---
Patient discharged with v/s stable. Written and verbal after care instructions given and explained. Patient alert, oriented and verbalized understanding of instructions. Ambulatory with steady gait. All questions addressed prior to discharge. ID band removed. Patient advised to follow up with PMD. Rx of IBUPROFEN (SENT) given. Patient educated on indication of medication including possible reaction and side effects. Opportunity to ask questions provided and answered.
--- NOTE | 2022-12-10 14:00 | NUR ---
PT CHANGED OUT OF SOILED DIAPER AT THIS TIME
== END 2022-12-10 13:49 | disposition home or self-care (01) ==
LOC: MED 10:21
DX: R42 Dizziness and giddiness (principal); R51.9 Headache, unspecified; J45.909 Unspecified asthma, uncomplicated; E11.9 Type 2 diabetes mellitus without complications; K21.9 Gastro-esophageal reflux disease without esophagitis; I10 Essential (primary) hypertension; Z90.49 Acquired absence of other specified parts of digestive tract; Z98.890 Other specified postprocedural states; Z79.899 Other long term (current) drug therapy; Z79.2 Long term (current) use of antibiotics; Z79.01 Long term (current) use of anticoagulants; Z79.1 Long term (current) use of non-steroidal anti-inflammatories (NSAID); Z88.0 Allergy status to penicillin
CPT/HCPCS: 36415; 80048; 81001; 85025; 96361; 96374; 99283; J1885; J7030